=== PATIENT | male | born 1995 ===

== ENCOUNTER 2018-04-15 07:56 | Emergency (ER) | payer MEDICAID ==
[~2018-04-15] VITALS: Ht 365.8 cm; Wt 107.5 kg
[2018-04-15 08:42] LABS: CLARITY,URINE CLEAR (Clear); COLOR,URINE YELLOW (Yellow); GLUCOSE, URINE NEGATIVE (Neg); KETONES,URINE TRACE mg/dl (Neg); LEUKOCYTE ESTERASE ,URINE NEGATIVE (Neg); NITRITES, URINE NEGATIVE (Neg); OCCULT BLOOD,URINE NEGATIVE (Neg); PROTEIN,URINE NEGATIVE (Neg); UROBILINOGEN,URINE 0.2 E.U/dL (0.2-1.0)
--- NOTE | 2018-04-15 08:45 | NUR ---
Patient brought back directly from Triage via ambulatory accompanied by grandmother and aunt. Changed into green gowns and all personal belongings inventoried. Breakfast ordered and served to patient. Patient ate 100% of his meal. Grandmother and aunt remain at bedside.
[2018-04-15 08:54] LABS: URINE AMPHETAMINE SCREEN NEGATIVE (Neg); URINE BARBITUATE SCREEN NEGATIVE (Neg); URINE BENZODIAZEPINES SCREEN NEGATIVE (Neg); URINE CANNABINOID SCREEN POSITIVE (Neg); URINE COCAINE SCREEN NEGATIVE (Neg); URINE METHADONE SCREEN NEGATIVE (Neg); URINE OPIATE SCREEN NEGATIVE (Neg); URINE PHENCYCLIDINE SCREEN NEGATIVE (Neg)
[2018-04-15 08:55] LABS: UA COLLECTION TYPE VOIDED
--- NOTE | 2018-04-15 09:30 | NUR ---
Participated in admission interview. States he went drinking last night and woke up with the idea of throwing himself over the [place]. Posted a picture of himself on social media with his eyes closed stating "Amy Max" Aunt and grandmother discovered photo and went out looking for him. [place] and called the police. Patient brought in by the police. Patient states he's been depressed "since I was a kid" but "finally decided to tell someone about it because it's been getting worse."
[2018-04-15 09:32] LABS: ALANINE AMINOTRANSFERASE 42 U/L (12-78); ALBUMIN 4.2 G/DL (3.4-5.0); ALBUMIN/GLOBULIN RATIO 1.2 (1.1-1.5); ALKALINE PHOSPHATASE 84 IU/L (20-180); ANION GAP 15 (8-16); ASPARTATE AMINO TRANSFERASE 19 U/L (10-37); BILIRUBIN,TOTAL 0.4 MG/DL (0.1-1.0); BLOOD UREA NITROGEN 11 MG/DL (7-18); BUN/CREATININE RATIO 11.6 (5.4-32.0); CALCIUM 8.9 MG/DL (8.5-10.1); CHLORIDE 107 MMOL/L (99-107); CREATININE 0.95 MG/DL (0.60-1.10); GLUCOSE 97 MG/DL (70-104); POTASSIUM 3.6 MMOL/L (3.5-5.1); SODIUM 146 MMOL/L (135-145); TOTAL CARBON DIOXIDE 24.5 MMOL/L (24-32); TOTAL PROTEIN 7.7 G/DL (6.4-8.2); eGFR > 90 ML/MIN
[2018-04-15 09:33] LABS: BASOPHILS % (AUTO) 0.7 % (0-1); EOSINOPHILS # (AUTO) 0.1 X10'3 (0-0.9); EOSINOPHILS % (AUTO) 1.4 % (0-6); HEMATOCRIT 48.7 % (42.0-52.0); HEMOGLOBIN 16.4 g/dl (14.0-17.9); LYMPHOCYTES # (AUTO) 2.7 X10'3 (1.1-4.8); LYMPHOCYTES % (AUTO) 41.8 % (21-51); MEAN CORPUSCULAR HEMOGLOBIN 29.1 PG (27.0-31.0); MEAN CORPUSCULAR HGB CONC 33.7 % (33.0-36.5); MEAN CORPUSCULAR VOLUME 86.2 FL (78-98); MEAN PLATELET VOLUME 8.4 FL (7.4-10.4); MONOCYTES # (AUTO) 0.4 X10'3 (0-0.9); MONOCYTES % (AUTO) 6.3 % (2-12); NEUTROPHILS # (AUTO) 3.2 X10'3 (1.8-7.7); NEUTROPHILS % (AUTO) 49.8 % (42-75); PLATELET COUNT 292 X10'3 (140-440); RED BLOOD COUNT 5.65 X10'6 (4.70-6.10); RED CELL DISTRIBUTION WIDTH 12.6 % (11.5-14.5); WHITE BLOOD COUNT 6.4 X10'3 (4.5-11.0)
[2018-04-15 09:41] LABS: ETHANOL 0.133 GM/DL (0.0-0.010)
[2018-04-15] MEDS ORDERED: ESCI5TAB PO (11:15)
--- NOTE | 2018-04-15 12:00 | NUR ---
Patient has family at bedside.
--- NOTE | 2018-04-15 13:00 | NUR ---
Awakened for lunch. Ate 100% of his meal. States "I need to sleep. I didn't sleep well last night."
--- NOTE | 2018-04-15 14:00 | NUR ---
Sleeping soundly at this time. In no acute distress.
--- NOTE | 2018-04-15 15:15 | NUR ---
Mikki marquez in [facility] - 04/15/18 at 1518 by JUAN MANUEL Patient currently being evaluated by Parag starr.
--- NOTE | 2018-04-15 15:18 | NUR ---
Patient currently being evaluated by [facility].
--- NOTE | 2018-04-15 17:03 | NUR ---
Slept on and off for remainder of the afternoon. Family in and out of overflow to visit for brief periods of time.
--- NOTE | 2018-04-15 18:53 | NUR ---
Family at bedside
--- NOTE | 2018-04-15 22:18 | NUR ---
pt. sleeping at this time. will continue to monitor.
--- NOTE | 2018-04-15 23:23 | NUR ---
Pt asleep on right side. RR 13, even and unlabored. No apparent distress at this time.
--- NOTE | 2018-04-16 01:41 | NUR ---
Pt asleep on back. RR 13, mild snoring noted; head of bed raised. No apparent distress at this time.
--- NOTE | 2018-04-16 02:06 | NUR ---
pt. sleeping at this time. no s/s of acute distress. will continue to monitor.
--- NOTE | 2018-04-16 03:16 | NUR ---
pt. sleeping on right side. no acute distress noted. will continue to monitor.
--- NOTE | 2018-04-16 05:21 | NUR ---
pt sleeping at this time.
[2018-04-16 06:13] VITALS: BP 127/65
--- NOTE | 2018-04-16 07:00 | NUR ---
Patient sleeping supine. No distress observed. Continue to monitor.
[2018-04-16] MEDS ORDERED: CITALOpram 10mg tablet PO SCH (08:00)
--- NOTE | 2018-04-16 09:32 | NUR ---
Grandmother and aunt visiting with patient. No distress observed. Continue to monitor.
--- NOTE | 2018-04-16 11:40 | NUR ---
Patient's family is now gone and patient is sleeping on right side. No distress observed. Continue to monitor.
--- NOTE | 2018-04-16 13:55 | NUR ---
Patient chatting and laughing with family. No distress observed. Continue to monitor.
--- NOTE | 2018-04-16 15:57 | NUR ---
Pt ambulatory, steady gait with bus driver supervisor, [facility] and security. Patient calm and in no distress. Patient being transferred to [facility].
== END 2018-04-16 15:52 ==
LOC: ER 07:57
DX: F32.9 Major depressive disorder, single episode, unspecified (principal); R45.851 Suicidal ideations; F14.10 Cocaine abuse, uncomplicated; F17.210 Nicotine dependence, cigarettes, uncomplicated; F10.10 Alcohol abuse, uncomplicated; F12.10 Cannabis abuse, uncomplicated; Z56.0 Unemployment, unspecified; Z79.899 Other long term (current) drug therapy; Y90.9 Presence of alcohol in blood, level not specified
CPT/HCPCS: 36415; 80053; 80305; 80320; 81003; 84443; 85025; 99285

== ENCOUNTER 2024-02-27 14:45 | Emergency (ER) | payer MEDICAID ==
[~2024-02-27] VITALS: Ht 182.9 cm; Wt 104.0 kg
[~2024-02-27 14:45] MED LIST: ESCI5TAB PO
[2024-02-27 14:48] VITALS: TEMP 97.9
[2024-02-27] MEDS ORDERED: ACET-3068 PO (15:42)
[2024-02-27] MEDS ORDERED: AMOX-580 PO (15:42)
[2024-02-27] MEDS ORDERED: BENZ9GEL TOP (15:42)
[2024-02-27 15:51] VITALS: BP 146/87; PULSE 89; RESP 18; O2SAT 98
== END 2024-02-27 15:53 | disposition home or self-care (01) ==
LOC: ER 14:46
DX: S02.5XXA Fracture of tooth (traumatic), initial encounter for closed fracture (principal); K08.89 Other specified disorders of teeth and supporting structures; K04.7 Periapical abscess without sinus; F32.A Depression, unspecified; F12.90 Cannabis use, unspecified, uncomplicated; F14.90 Cocaine use, unspecified, uncomplicated; Z79.899 Other long term (current) drug therapy; X58.XXXA Exposure to other specified factors, initial encounter; Y93.89 Activity, other specified; Y92.89 Other specified places as the place of occurrence of the external cause; Y99.8 Other external cause status
CPT/HCPCS: 99283